=== PATIENT | female | born 1995 | race Caucasian/White ===

== ENCOUNTER 2016-12-10 01:15 | Emergency (ER) | payer MEDICAID, OTHER ==
[~2016-12-10] VITALS: Ht 162.6 cm; Wt 78.0 kg
[2016-12-10 01:18] VITALS: Ht 162.6 cm; Wt 78.0 kg
--- NOTE | 2016-12-10 02:28 | ERD ---
ER Documentation Chief Complaint Chief Complaint Rt side back pain [id number] worse today. No relief w/Tylenol. -trauma HPI 20-year-old female presents here to emergency department for complaints of right mid back pain, right upper quadrant abdominal pain right lower quadrant abdominal pain been going on for 2 months, worse today. Patient describes the pain as sharp pain, 6/10 scale, not better or worse with with anything and patient denies any vomiting diarrhea or constipation. Patient denies any fever or chills. Patient denies any hematuria or dysuria. ROS All systems reviewed and are negative except as per history of present illness. Medications Home Meds Reported Medications [none] Unknown Strength No Conflict Check 12/10/16 Allergies Allergies: Coded Allergies: No Known Allergy (Unverified , 11/24/13) PMhx/Soc Medical and Surgical Hx: pt denies Medical Hx History of Surgery: Yes (appy) Anesthesia Reaction: No Hx Neurological Disorder: No Hx Respiratory Disorders: No Hx Cardiac Disorders: No Hx Psychiatric Problems: No Hx Miscellaneous Medical Probl: No Hx Alcohol Use: No Hx Substance Use: No Hx Tobacco Use: No Smoking Status: Never smoker FmHx Family History: No coronary disease, No diabetes, No other Physical Exam Vitals Vital Signs Date Time Temp Pulse Resp B/P Pulse Ox O2 Delivery O2 Flow Rate FiO2 12/10/16 01:18 98.1 68 18 166/90 97 Physical Exam GENERAL: The patient is well developed and appropriate for usual state of health, in no apparent distress. CHEST: Clear to auscultation bilaterally. There are no rales, wheezes or rhonchi. HEART: Regular rate and rhythm. No murmurs, clicks, rubs or gallops. No S3 or S4. ABDOMEN: Soft, nontender and nondistended. Good bowel sounds. No rebound or guarding. No gross peritonitis. No gross organomegaly or masses. No Engle sign or McBurney point tenderness. BACK: No midline or flank tenderness. EXTREMITIES: Equal pulses bilaterally. There is no peripheral clubbing, cyanosis or edema. No focal swelling or erythema. Full range of motion. Grossly neurovascularly intact. NEURO: Alert and oriented. Cranial nerves 2-12 intact. Motor strength in all 4 extremities with 5/5 strength. Sensation grossly intact. Normal speech and gait. SKIN: There is no apparent rash or petechia. The skin is warm and dry. HEMATOLOGIC AND LYMPHATIC: There is no evidence of excessive bruising or lymphedema. No gross cervical, axillary, or inguinal lymphadenopathy. Result Diagram: 12/10/16 0240 12/10/16 0240 Results 24 hrs Laboratory Tests Test 12/10/16 02:40 White Blood Count 9.910^3/ul Red Blood Count 4.9710^6/ul Hemoglobin 14.8g/dl Hematocrit 44.4% Mean Corpuscular Volume 89.3fl Mean Corpuscular Hemoglobin 29.8pg Mean Corpuscular Hemoglobin Concent 33.3g/dl Red Cell Distribution Width 12.6% Platelet Count 43436^3/UL Mean Platelet Volume 11.5fl Neutrophils % 70.4% Lymphocytes % 19.5% Monocytes % 5.8% Eosinophils % 3.1% Basophils % 0.5% Nucleated Red Blood Cells % 0.0/100WBC Neutrophils # 7.010^3/ul Lymphocytes # 1.910^3/ul Monocytes # 0.610^3/ul Eosinophils # 0.310^3/ul Basophils # 0.110^3/ul Nucleated Red Blood Cells # 0.010^3/ul Urine Color YELLOW Urine Clarity SLIGHTLY CLOUDY Urine pH 7.0 Urine Specific [place] 1.014 Urine Ketones NEGATIVEmg/dL Urine Nitrite NEGATIVEmg/dL Urine Bilirubin NEGATIVEmg/dL Urine Urobilinogen NEGATIVEmg/dL Urine Leukocyte Esterase 2+Courtney/ul Urine Microscopic RBC 2/HPF Urine Microscopic WBC 18/HPF Urine Squamous Epithelial Cells FEW/HPF Urine Amorphous Crystals MODERATE/HPF Urine Mucus FEW/HPF Urine Hemoglobin NEGATIVEmg/dL Urine Glucose NEGATIVEmg/dL Urine Total Protein NEGATIVEmg/dl Sodium Level 143mmol/L Potassium Level 3.8mmol/L Chloride Level 102mmol/L Carbon Dioxide Level 29mmol/L Anion Gap 16 Blood Urea Nitrogen 13mg/dl Creatinine 0.81mg/dl Glucose Level 109mg/dl Calcium Level 8.8mg/dl Total Bilirubin 0.2mg/dl Direct Bilirubin 0.00mg/dl Indirect Bilirubin 0.2mg/dl Aspartate Amino Transf (AST/SGOT) 41IU/L Alanine Aminotransferase (ALT/SGPT) 80IU/L Alkaline Phosphatase 91IU/L Total Protein 7.4g/dl Albumin 4.8g/dl Globulin 2.60g/dl Albumin/Globulin Ratio 1.84 Lipase 71U/L Current Medications Medications (Trade) Dose Ordered Sig/Mohamud Route PRN Reason Start Time Stop Time Status Last Admin Dose Admin Acetaminophen/ Hydrocodone Bitart (Cypress (5/325)) 1 tab ONCE ONCE PO 12/10/16 04:00 12/10/16 04:01 DC 12/10/16 03:42 PROCEDURE: Ultrasound of the abdomen. CLINICAL INDICATION: Right upper quadrant pain. TECHNIQUE: Sonographic images of the abdomen were performed. COMPARISON: No pertinent prior examinations were submitted for comparison. FINDINGS: Liver: The liver is diffusely increased in echogenicity and enlarged, measuring approximately 20.1 cm. The hepatic veins and portal veins are patent with appropriate directional flow. No intrahepatic ductal dilatation is seen. Gallbladder: Stones are noted within the gallbladder. There is no definite gallbladder wall thickening or pericholecystic free fluid. The common duct measures 3.70 mm. Pancreas: There is limited evaluation of the pancreatic body and tail. The visualized portions of the pancreas are unremarkable. Kidneys: The right kidney measures 10.2 cm. There is normal corticomedullary differentiation. There is no evidence of renal calculus or hydronephrosis. IVC: The visualized portion of the inferior vena cava is unremarkable. Aorta: Normal in size. Free fluid: None. IMPRESSION: Cholelithiasis. Hepatomegaly and hepatic steatosis. RPTAT: HIKT .Ray Miguel MD, Date Time Electronically viewed and signed by .Ray Miguel MD, on 12/10/2016 03:30 .T/ CC: CHARLEE LEZAMA NP PROCEDURE: XR thoracic Spine. CLINICAL INDICATION: Back pain TECHNIQUE: Supine AP, lateral and swimmer's views of the thoracic spine were obtained. COMPARISON: No prior studies are available for comparison. FINDINGS: The exam is limited due to positioning. There is normal vertebral mineralization and alignment. No acute fracture or subluxation is seen. The disc spaces are grossly normal in appearance. The posterior elements are unremarkable. IMPRESSION: Unremarkable thoracic spine radiographs. Physician Tracy Date Time Electronically viewed and signed by Physician Tracy on 12/10/2016 03: 02 CS/ CC: CHARLEE LEZAMA RN CARE TRANSITION PROCEDURE: US Pelvis. CLINICAL INDICATION: Pelvic pain. LMP 07/16/2016 TECHNIQUE: Multiple sonographic images of the pelvis were obtained utilizing a transabdominal and endovaginal technique. The images were reviewed on a PACS workstation. COMPARISON: None. FINDINGS: The uterus is visualized and measures 7.6 x 3.6 x 5.5 cm. The endometrial echo complex is normal and measures 4.7 mm. There is no evidence for free fluid. The right ovary has a normal echotexture and measures 3.6 x 2.5 x 3.2 cm . The left ovary has a normal echotexture and measures 3.4 x 2.1 x 2.2 cm. Doppler flow is demonstrated in both ovaries.. No adnexal mass is identified. IMPRESSION: Unremarkable pelvic ultrasound. Physician Tracy Date Time Electronically viewed and signed by Physician Tracy on 12/10/2016 03: 33 CS/ CC: CHARLEE LEZAMA RN CARE TRANSITION Procedures/MDM Medical Decision Making: Symptoms most likely is consistent with biliary colic, also induced urinary tract infection, symptoms of pyelonephritis. No symptoms of choledocholithiasis, pancreatitis. No symptoms of any ovarian torsion. There is low suspicion for abdominal emergencies at this time. Patients abdominal exam is normal at this time. Patients radiology exam does not show any abdominal emergencies at this time. There is low suspicion for appendicitis , cholecystitis, abdominal aortic aneurysms or peritonitis at this time. There is low suspicion for sepsis. Patient appears well and is hemodynamically stable. Disposition: Home. Condition: Stable Prescription Cypress, Zofran, ciprofloxacin, Pyridium Instructions: Patient is advised to take medications as prescribed. Patient is advised to rest, increase fluid intake and do brat diet for next 1-2 days and progress as tolerated. Patient is advised that if symptoms are worse, severe abdominal pain, uncontrolled vomiting, high fever, severe flank pain, worst signs and symptoms, to return to the emergency department immediately. Otherwise, patient can follow up with primary care doctor in 5-7 days. Disclaimer: Inadvertent spelling and grammatical errors are likely due to EHR/ dictation software use and do not reflect on the overall quality of patient care. Also, please note that the electronic time recorded on this note does not necessarily reflect the actual time of the patient encounter. Departure Diagnosis: Primary Impression: Biliary colic Additional Impression: UTI (urinary tract infection) Urinary tract infection type: acute cystitis Hematuria presence: without hematuria Qualified Code: N30.00 - Acute cystitis without hematuria Condition: Stable Patient Instructions: Biliary Colic With Gallstone (Confirmed), Understanding Urinary Tract Infections (UTIs) Additional Instructions: Patient is advised to take medications as prescribed. Patient is advised to rest , increase fluid intake and do brat diet for next 1-2 days and progress as tolerated. Patient is advised that if symptoms are worse, severe abdominal pain , uncontrolled vomiting, high fever, severe flank pain, worst signs and symptoms , to return to the emergency department immediately. Otherwise, patient can follow up with primary care doctor in 5-7 days. CHARLEE LEZAMA NP Dec 10, 2016 02:28
--- NOTE | 2016-12-10 03:03 | RADRPT ---
PROCEDURE: XR thoracic Spine. CLINICAL INDICATION: Back pain TECHNIQUE: Supine AP, lateral and swimmer's views of the thoracic spine were obtained. COMPARISON: No prior studies are available for comparison. FINDINGS: The exam is limited due to positioning. There is normal vertebral mineralization and alignment. No acute fracture or subluxation is seen. The disc spaces are grossly normal in appearance. The posterior elements are unremarkable. IMPRESSION: Unremarkable thoracic spine radiographs. Physician Tracy Date Time Electronically viewed and signed by Physician Tracy on 12/10/2016 03:02 CS/
[2016-12-10 03:24] LABS: BASOPHIL # 0.1 10^3/ul (0.0-0.1); BASOPHILS % 0.5 % (0.0-2.0); EOSINOPHILS # 0.3 10^3/ul (0.0-0.5); EOSINOPHILS % 3.1 % (0.0-7.0); HEMATOCRIT 44.4 % (37.0-47.0); HEMOGLOBIN 14.8 g/dl (12.0-16.0); LYMPHOCYTES # 1.9 10^3/ul (0.8-2.9); LYMPHOCYTES % 19.5 % (15.0-51.0); MEAN CORPUSCULAR HEMOGLOBIN 29.8 pg (29.0-33.0); MEAN CORPUSCULAR HGB CONC 33.3 g/dl (32.0-37.0); MEAN CORPUSCULAR VOLUME 89.3 fl (82.0-101.0); MEAN PLATELET VOLUME 11.5 fl (7.4-10.4); MONOCYTE # 0.6 10^3/ul (0.3-0.9); MONOCYTES % 5.8 % (0.0-11.0); NEUTROPHILS % 70.4 % (39.0-77.0); PLATELET COUNT 216 10^3/UL (140-415); RED BLOOD COUNT 4.97 10^6/ul (4.20-5.40); RED CELL DISTRIBUTION WIDTH 12.6 % (11.5-14.5); WHITE BLOOD COUNT 9.9 10^3/ul (4.8-10.8)
--- NOTE | 2016-12-10 03:31 | RADRPT ---
PROCEDURE: Ultrasound of the abdomen. CLINICAL INDICATION: Right upper quadrant pain. TECHNIQUE: Sonographic images of the abdomen were performed. COMPARISON: No pertinent prior examinations were submitted for comparison. FINDINGS: Liver: The liver is diffusely increased in echogenicity and enlarged, measuring approximately 20.1 cm. The hepatic veins and portal veins are patent with appropriate directional flow. No intrahepatic ductal dilatation is seen. Gallbladder: Stones are noted within the gallbladder. There is no definite gallbladder wall thicken ing or pericholecystic free fluid. The common duct measures 3.70 mm. Pancreas: There is limited evaluation of the pancreatic body and tail. The visualized portions of the pancreas are unremarkable. Kidneys: The right kidney measures 10.2 cm. There is normal corticomedullary differentiation. Ther e is no evidence of renal calculus or hydronephrosis. IVC: The visualized portion of the inferior vena cava is unremarkable. Aorta: Normal in size. Free fluid: None. IMPRESSION: Cholelithiasis. Hepatomegaly and hepatic steatosis. RPTAT: HIKT .Ray Miguel MD, Date Time Electronically viewed and signed by .Ray Miguel MD, on 12/10/2016 03:30 .T/
--- NOTE | 2016-12-10 03:33 | RADRPT ---
PROCEDURE: US Pelvis. CLINICAL INDICATION: Pelvic pain. LMP 07/16/2016 TECHNIQUE: Multiple sonographic images of the pelvis were obtained utilizing a transabdominal and endovaginal technique. The images were reviewed on a PACS workstation. COMPARISON: None. FINDINGS: The uterus is visualized and measures 7.6 x 3.6 x 5.5 cm. The endometrial echo complex is normal and measures 4.7 mm. There is no evidence for free fluid. The right ovary has a normal echotexture and measures 3.6 x 2.5 x 3.2 cm . The left ovary has a normal echotexture and measures 3.4 x 2.1 x 2.2 cm. Doppler flow is demonstrated in both ovaries.. No adnexal mass is identified. IMPRESSION: Unremarkable pelvic ultrasound. Physician Tracy Date Time Electronically viewed and signed by Physician Tracy on 12/10/2016 03:33 /
[2016-12-10 03:43] LABS: ALBUMIN 4.8 g/dl (3.3-4.9); ALBUMIN/GLOBULIN RATIO 1.84; BILIRUBIN,INDIRECT 0.2 mg/dl (0-1.1); BILIRUBIN,TOTAL 0.2 mg/dl (0.2-1.3); CALCIUM 8.8 mg/dl (8.4-10.2); CREATININE 0.81 mg/dl (0.44-1.00); POTASSIUM 3.8 mmol/L (3.5-5.1); TOTAL PROTEIN 7.4 g/dl (6.1-8.1)
[2016-12-10 03:47] LABS: ADD UMIC YES; UR AMORPHOUS CRYSTAL MODERATE /HPF (NONE SEEN); UR ASCORBIC ACID NEGATIVE (NEGATIVE); UR BILIRUBIN (Dip) NEGATIVE (NEGATIVE); UR BLOOD (Dip) NEGATIVE (NEGATIVE); UR CLARITY SLIGHTLY CLOUDY (CLEAR); UR COLOR YELLOW (YELLOW); UR GLUCOSE (Dip) NEGATIVE (NEGATIVE); UR KETONES (Dip) NEGATIVE (NEGATIVE); UR LEUKOCYTE ESTERASE (Dip) 2+ Leu/ul (NEGATIVE); UR MUCUS FEW /HPF (NONE SEEN); UR NITRITE (Dip) NEGATIVE (NEGATIVE); UR RBC 2 /HPF (0-5); UR SPECIFIC GRAVITY (Dip) 1.014 (1.003-1.030); UR SQUAMOUS EPITHELIAL CELL FEW /HPF (FEW); UR TOTAL PROTEIN (Dip) NEGATIVE (NEGATIVE); UR UROBILINOGEN (Dip) NEGATIVE (NEGATIVE)
[2016-12-10] MEDS ORDERED: HYDROCODONE/APAP (5/325) TAB PO ONE (04:00)
[2016-12-10] MEDS ORDERED: HYDR-906 PO (04:06)
[2016-12-10] MEDS ORDERED: CIPR500T4 PO (04:06)
[2016-12-10] MEDS ORDERED: PHEN-538 PO (04:06)
[2016-12-10] MEDS ORDERED: ONDA4TAB14 PO (04:06)
== END 2016-12-10 04:30 | disposition home or self-care (01) ==
LOC: FTE 01:15
DX: K80.50 Calculus of bile duct without cholangitis or cholecystitis without obstruction (principal); N30.00 Acute cystitis without hematuria; R10.2 Pelvic and perineal pain
CPT/HCPCS: 36415; 72072; 76705; 76856; 80053; 81001; 83690; 85025; Z7502; Z7610

== ENCOUNTER 2017-05-09 08:38 | Emergency (ER) | END 2017-05-09 12:18 | disposition home or self-care (01) ==